=== PATIENT | female | born 1975 | race African-American/Black ===

== ENCOUNTER 2019-12-17 08:53 | Day surgery (SDC) | payer OTHER, SELFPAY ==
[~2019-12-17] VITALS: Ht 167.6 cm; Wt 104.3 kg
[2019-12-17 09:54] LABS: BASOPHILS # (AUTO) 0.1 K/uL (0.00-0.22); BASOPHILS % (AUTO) 0.7 % (0.0-2.0); EOSINOPHILS # (AUTO) 0.3 K/uL (0-0.4); EOSINOPHILS % (AUTO) 2.5 % (0.0-4.0); HEMATOCRIT 38.1 % (36-48); HEMOGLOBIN 12.1 g/dL (12.0-16.0); LYMPHOCYTES # (AUTO) 3.5 K/uL (2.5-16.5); MEAN CORPUSCULAR HEMOGLOBIN 24 pg (27-31); MEAN CORPUSCULAR HGB CONC 32 g/dL (33-37); MEAN CORPUSCULAR VOLUME 75.5 fL (80-94); MONOCYTES # (AUTO) 0.7 K/uL (0.8-1.0); MONOCYTES % (AUTO) 6.1 % (1.7-9.3); NEUTROPHILS # (AUTO) 6.7 K/uL (1.8-7.7); NEUTROPHILS % (AUTO) 59.7 % (42.2-75.2); PLATELET COUNT (AUTO) 418 K/uL (140-450); RED BLOOD CELL COUNT(AUTO) 5.04 MIL/uL (4.20-5.40); RED CELL DISTRIBUTION WIDTH 17.3 % (11.6-13.7); WHITE BLOOD COUNT (AUTO) 11.2 K/uL (4.8-10.8)
[2019-12-17] MEDS ORDERED: DEXAMETHASONE 4 MG/ML VIAL ONE (11:27)
[2019-12-17] MEDS ORDERED: SUGAMMADEX SODIUM 200 MG/2 ML VIAL IV ONE (11:27)
[2019-12-17] MEDS ORDERED: DESFLURANE 240 ML BTL INH ONE (11:27)
[2019-12-17] MEDS ORDERED: fentaNYL citrate 0.05 MG/ML VIAL ONE (11:27)
[2019-12-17] MEDS ORDERED: SUCCINYLCHOLINE CHLORIDE 200 MG/10 ML VIAL IVP ONE (11:27)
[2019-12-17] MEDS ORDERED: KETOROLAC 30 MG/ML VIAL ONE (11:27)
[2019-12-17] MEDS ORDERED: HYDROmorphone 1 MG/ML AMP ONE (11:27)
[2019-12-17] MEDS ORDERED: PROPOFOL 200 MG/20 ML VIAL IV ONE (11:27)
[2019-12-17] MEDS ORDERED: ONDANSETRON 4 MG/2 ML VIAL ONE (11:27)
[2019-12-17] MEDS ORDERED: ROCURONIUM 50 MG/5 ML VIAL IV ONE (11:27)
[2019-12-17] MEDS ORDERED: BUPIVACAINE MPF 0.25% 10 ML VIAL INJ ONE (11:42)
[2019-12-17] MEDS ORDERED: BUPIVACAINE-MPF/EPI 0.25% 30 ML VIAL INJ ONE (11:43)
[2019-12-17] MEDS ORDERED: HYDROmorphone 1 MG/ML AMP IVP PRN (12:35)
[2019-12-17] MEDS ORDERED: ONDANSETRON 4 MG/2 ML VIAL IVP PRN (12:35)
== END 2019-12-17 14:00 | disposition home or self-care (01) ==
LOC: MMU 08:53 → MDS 08:53
PROVIDERS: ATTEND Obstetrics & Gynecology
DX: Z30.2 Encounter for sterilization (principal); I10 Essential (primary) hypertension; J45.909 Unspecified asthma, uncomplicated; Z91.040 Latex allergy status; Z79.899 Other long term (current) drug therapy; Z20.828 Contact with and (suspected) exposure to other viral communicable diseases
CPT/HCPCS: 36415; 58670; 81025; 85025; J0330; J1100; J1170; J1885; J2405; J2704; J3010; J3490; J7120; U0003